=== PATIENT | male | born 1950 ===

== ENCOUNTER 2025-07-13 12:00 | Day surgery (SDC) | payer OTHER ==
[2025-07-05 13:29] VITALS: BP 118/84
[~2025-07-13 12:00] MED LIST: COZAAR100 MG PO; FARXIGA10 MG PO; GLUCAGON 1 MG VIAL ONE; LASIX20 MG PO; LIPITOR40 MG PO; MOUNJARO5 MG/0.5 M; SPIRONOLACTONE25 MG PO; SYNTHROID175 MCG PO; TAMS0.4C PO; TOPROL XL50 M1 PO; ZETIA10 MG PO
== END 2025-07-13 13:05 | disposition home or self-care (01) ==
LOC: CIR.AMB 12:00
PROVIDERS: ATTEND Internal Medicine
DX: K92.1 Melena (principal); D50.9 Iron deficiency anemia, unspecified; K92.2 Gastrointestinal hemorrhage, unspecified; Q27.33 Arteriovenous malformation of digestive system vessel; K44.9 Diaphragmatic hernia without obstruction or gangrene